=== PATIENT | female | born 1965 ===

== ENCOUNTER → 2023-02-20 07:39 | Outpatient (CLI) | payer OTHER, SELFPAY ==
--- NOTE | 2023-02-20 | DI.ECHO.S_ITS ---
[facility] +---------+ : : [address] : [address] : [place] : : : : [id number] : : : : Phone: [phone]---------+ Echocardiogram Report + + :Name: LONNIE PRIETO Study Date: 02/20/2023 Height: 64 in : :[facility] ReadingLocation: Weight: 148 lb : : Gender: Female BSA: 1.7 m2 : :: 1965 Age: 58 yrs BP: 114/79 mmHg: :Reason For Study: SHORTNESS OF BREATH : :Ordering Physician: TYRONE, : :ANABELA Dorsey Performed By: Larisa Escudero : :Referring: ANABELA ZHANG : + + Interpretation Summary The ejection fraction is estimated to be 60-65%. Diastolic parameters suggest probable normal left ventricular diastolic function and normal filling pressures. The right ventricle is normal in size and function. No significant valvular abnormalities. Pulmonary artery pressures cannot be estimated because of the lack of a measurable TR jet velocity but the IVC suggests a CVP of around 3 mmHg. Procedure: A two-dimensional transthoracic echocardiogram with color flow and Doppler was performed. The study quality was technically adequate. There is no prior echocardiogram noted for this patient. The patient was in sinus rhythm with heart rates between 54-65 bpm during the exam. Left Ventricle: The left ventricle is normal in size and wall thickness. The ejection fraction is estimated to be 60-65%. Diastolic parameters suggest probable normal left ventricular diastolic function and normal filling pressures. Right Ventricle: The right ventricle is normal in size and function. Atria: The left atrial size is normal. Right atrial size is normal. There is no Doppler evidence for an interatrial shunt. Mitral Valve: The mitral valve is normal in structure and function. There is trace mitral regurgitation. Aortic Valve: The aortic valve is trileaflet. The aortic valve opens well. There is no aortic valve stenosis. No aortic regurgitation is present. Tricuspid Valve: The tricuspid valve is normal in structure and function. There is trace tricuspid regurgitation. Pulmonary artery pressures cannot be estimated because of the lack of a measurable TR jet velocity but the IVC suggests a CVP of around 3 mmHg. Pulmonic Valve: The pulmonic valve leaflets are thin and pliable; valve motion is normal. There is no pulmonic valvular regurgitation. Great Vessels: The aortic root is normal size. The dimensions of the ascending aorta are normal. The IVC is of normal diameter and collapses greater than 50% with a sniff. This suggests a low right atrial pressure of 3 mm Hg. Pericardium/ Pleura There is no pericardial effusion. There is no pleural effusion. MMode/2D Measurements & Calculations LVIDd: 4.4 cm LVOT diam: 2.3 cm LVIDs: 3.1 cm Ao root diam: 2.5 cm FS: 30.1 % asc Aorta Diam: 3.0 cm IVSd: 0.63 cm Ao Arch Diam (Prox Trans): 2.8 cm LVPWd: 0.74 cm LV whitmore. diameter/BSA (cm/m^2): 2.6 LV sys. diameter/BSA (cm/m^2): 1.8 LA A2 area: 15.1 cm2 RA long axis: 5.0 cm LA A4 area: 14.4 cm2 RA area: 14.5 cm2 LA length (vol): 5.0 cm RA vol: 35.5 ml LA vol: 37.0 ml RA : 20.6 ml/m2 LA vol index: 21.5 ml/m2 IVC diam: 1.3 cm RVD1 (basal): 2.9 cm RVD2 (mid): 2.5 cm TAPSE: 2.0 cm Doppler Measurements & Calculations Ao V2 max: 119.0 cm/sec LVOT Max Pa: 107.6 cm/sec Ao V2 mean: 81.5 cm/sec LV V1 max P.6 mmHg Ao max P.7 mmHg LV V1 VTI: 22.2 cm Ao mean P.0 mmHg STEPHANIE(I,D): 3.6 cm2 Ao V2 VTI: 25.1 cm STEPHANIE(V,D): 3.7 cm2 sev ratio: 0.88 STEPHANIE indexed to BSA (cm^2/m^2): 2.1 MV E max pa: 76.0 cm/sec TR max pa: 213.4 cm/sec MV A max pa: 50.9 cm/sec TR max P.2 mmHg MV E/A: 1.5 PA V2 max: 74.5 cm/sec Med Peak E' Pa: 8.7 cm/sec PA V2 mean: 58.0 cm/sec E/E' med: 8.7 PA mean P.5 mmHg Lat Peak E' Pa: 10.6 cm/sec PA pr(Accel): 1.9 mmHg E/E' lat: 7.1 E/e' average: 7.9 MV dec time: 0.23 sec SV(LVOT): 89.7 ml Reading Physician:12:32 PM
--- NOTE | 2023-02-20 21:20 | DI.NM.S_ITS ---
DATE OF SERVICE: 02/20/2023 PROCEDURE: Exercise treadmill stress and rest myocardial perfusion imaging study with gating to assess ejection fraction and regional wall motion. ORDERING PROVIDER: Anabela Zhang M.D. INDICATIONS: The patient is a 58-year-old female with exertional dyspnea. CARDIAC STRESS: The patient was able to walk for 4 minutes 4 seconds on a standard Mane protocol although this was a submaximal test, stopping because of her lack of coordination with the treadmill more than maximal effort. However, she had a brisk heart rate response to exercise with a resting heart rate of 81 BPM and increasing to a maximum of 153 BPM (95% of her predicted maximum). She had no chest discomfort or other anginal symptoms. Her resting ECG shows sinus rhythm with normal ST segments, and there are no significant ST-segment shifts or arrhythmias with stress. At 2 minutes 45 seconds of exercise and a heart rate of 140 BPM, 27.5 mCi of technetium-99m Myoview was injected and she was imaged 15 minutes later using a gated SPECT acquisition protocol. Earlier in the day while at rest, she had been injected with 12.8 mCi of technetium-99m Myoview and was imaged 15 minutes later using a quantitated gated SPECT acquisition protocol. FINDINGS: 1. Raw data. There is fairly good myocardial tracer uptake with only faint breast shadows noted. The lung/heart ratio is normal at 0.37 with a normal TID ratio of 0.93. 2. Quantitated gated SPECT: Post-stress ejection fraction is estimated at 89%, likely an overestimate because of relatively small left ventricular volumes, and no focal wall motion abnormalities. The resting ejection fraction is estimated at 77%, although visually appears unchanged from the post-stress images. Resting end-diastolic volume is normal at 81 mL. 3. Myocardial perfusion imaging: Post-stress supine images show a normal perfusion pattern without any concerning perfusion defects, supported by normal perfusion imaging in the prone position. The resting images show a similar perfusion pattern without any obvious areas of significant improvement. IMPRESSION: 1. Normal myocardial perfusion study for ischemia. 2. No evidence of myocardial ischemia or previous myocardial infarction. 3. High normal left ventricular systolic function without any focal wall motion abnormality. 4. Probable moderate-severely reduced exercise capacity with an CHANA of +40%, although submaximal because of the patient's ability to walk on the treadmill, yet with an accelerated heart rate response to exercise. She had no angina, arrhythmias, or ECG changes of ischemia. Olga Reich - /sharda/ec doc#: [id number]/job#: [id number] dd: 02/20/2023 16:34:00 dt: 02/20/2023 20:40:00 DICTATING MD/COPIES TO: Prosper Breaux MD; Anabela Zhang M.D. COPIES MNE: CAROL ANN;
== END ==
PROVIDERS: Referring Provider Internal Medicine Cardiovascular Disease; Visit Provider Internal Medicine Cardiovascular Disease
DX: R06.02 Shortness of breath (principal)
CPT/HCPCS: 78452; 93017; 93306; A9502